=== PATIENT | female | born 1950 | race Caucasian/White ===

== ENCOUNTER → 2020-05-03 | Outpatient (CLI) | payer MEDICARE, BC ==
[2015-02-18 12:11] VITALS: BP 140/89
[~2020-05-03] MED LIST: KETOROLAC10 MG PO; LISINOPRIL10 MG PO; NORCO 325 MG-51 TA1 PO; NORCO 325 MG-51 TAB PO
== END ==
LOC: PT 09:30
DX: Z96.652 Presence of left artificial knee joint (principal)

== ENCOUNTER 2020-06-28 11:30 | Outpatient (RCR) | payer MEDICARE, BC ==
[2015-02-18 12:11] VITALS: BP 140/89
== END 2020-06-28 12:00 | disposition still patient (30) ==
LOC: PT 11:30
DX: M25.562 Pain in left knee (principal); Z96.652 Presence of left artificial knee joint

== ENCOUNTER 2021-10-25 13:00 | Outpatient (RCR) | payer MEDICARE, BC | END 2021-10-29 | disposition home or self-care (01) | LOC: PT | DX: M25.511 Pain in right shoulder (principal) ==

== ENCOUNTER 2024-03-31 22:38 | Emergency (ER) | payer MEDICARE, BC ==
[2024-03-31 23:45] LABS: BASO # 0.04 K/mm3 (0.02-0.10); EOS # 0.08 K/mm3 (0.04-0.40); EOS % 0.9 % (1.0-5.0); HEMATOCRIT 39.9 % (37.0-47.0); LYMPH# 1.96 K/mm3 (1.50-4.00); MEAN CELL VOLUME 92 fl (78-100); MEAN CORPUSCULAR HEMOGLOBIN 30 pg (27-31); MEAN CORPUSCULAR HGB CONC 33 g/dL (33-37); MONO # 0.76 K/mm3 (0.20-0.80); NEU # 6.46 K/mm3 (1.40-6.50); PLATELET COUNT 207 K/mm3 (130-400); RED BLOOD COUNT 4.35 M/mm3 (4.10-5.30); RED CELL DISTRIBUTION WIDTH 14.1 % (11.5-14.5); WHITE BLOOD COUNT 9.3 K/mm3 (4.8-10.8)
[2024-03-31 23:52] LABS: ALBUMIN 3.8 g/dL (3.4-4.8); SODIUM 140 mmol/L (136-145)
[2024-03-31 23:54] LABS: CALCIUM 9.2 mg/dL (8.3-10.5)
[2024-03-31 23:55] LABS: GLUCOSE 105 mg/dL (65-105); TOTAL PROTEIN 6.2 g/dL (6.2-8.1)
[2024-03-31 23:56] LABS: CARBON DIOXIDE 21 mmol/L (23-31)
[2024-03-31 23:57] LABS: TOTAL BILIRUBIN 0.3 mg/dL (0.2-1.2)
[2024-04-01] LABS: AST-SGOT 16 U/L (5-34)
[2024-04-01 00:01] LABS: ALT/SGPT 14 U/L (0-55)
[2024-04-01] MEDS ORDERED: KETOROLAC10 MG PO (00:07)
[2024-04-01 00:18] VITALS: BP 131/93
== END 2024-04-01 00:18 | disposition home or self-care (01) ==
LOC: ED 22:38
PROVIDERS: Family Medicine
DX: M19.071 Primary osteoarthritis, right ankle and foot (principal); S20.219A Contusion of unspecified front wall of thorax, initial encounter; X58.XXXA Exposure to other specified factors, initial encounter